=== PATIENT | male | born 1980 | race African-American/Black ===

== ENCOUNTER 2021-03-20 09:39 | Outpatient (REF) | payer OTHER, SELFPAY | END 2021-03-20 09:40 | disposition home or self-care (01) | LOC: HO.LAB 09:39 | PROVIDERS: Visit Provider Internal Medicine | DX: Z20.822 Contact with and (suspected) exposure to COVID-19 (principal) | CPT/HCPCS: C9803; U0003; U0005 ==

== ENCOUNTER 2021-05-08 16:55 | Emergency (ER) | payer OTHER, SELFPAY ==
--- NOTE | ~2021-05-08 | XR_ITS ---
EXAMINATION: 1. RIGHT FOOT. 2. RIGHT ANKLE. CLINICAL INFORMATION: Foot pain. Leg pain. Swelling. COMPARISON: None TECHNIQUE: 1. Right ankle. 3 views 2. Right foot. 3 views. FINDINGS: 1. Right ankle. No fracture. No dislocation. Ankle mortise is congruent. No soft tissue abnormality. 2. Right foot. No fracture. No dislocation. Joint spaces are normal. No soft tissue abnormality. XR/XR foot RT min 3V IMPRESSION: 1. Right ankle. Normal right ankle. 2. Right foot. Normal right foot.
--- NOTE | ~2021-05-08 | XR_ITS ---
EXAMINATION: 1. RIGHT FOOT. 2. RIGHT ANKLE. CLINICAL INFORMATION: Foot pain. Leg pain. Swelling. COMPARISON: None TECHNIQUE: 1. Right ankle. 3 views 2. Right foot. 3 views. FINDINGS: 1. Right ankle. No fracture. No dislocation. Ankle mortise is congruent. No soft tissue abnormality. 2. Right foot. No fracture. No dislocation. Joint spaces are normal. No soft tissue abnormality. XR/XR ankle RT min 3V IMPRESSION: 1. Right ankle. Normal right ankle. 2. Right foot. Normal right foot.
[2021-05-08 18:21] VITALS: BP 147/94; PULSE 65; RESP 18; TEMP 37; O2SAT 98; BMI 24.3
--- NOTE | 2021-05-08 19:25 | ED.EXTPRO ---
HPI - Extremity Problem General Chief complaint: Extremity Problem Stated complaint: Right foot pain/no inj Time Seen by Provider: 05/08/21 18:32 Source: patient Mode of arrival: ambulatory Limitations: no limitations History of Present Illness HPI Narrative: 41 years old male came in for evaluation of right foot/ankle pain. 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 Patient's job require medical clearance before go back to work. Related Data Allergies Allergy/AdvReac Type Severity Reaction Status Date / Time No Known Allergies Allergy Verified 05/08/21 18:21 Review of Systems Review of Systems: All other systems are reviewed and are negative Constitutional: Reports as per HPI and Reports no additional constitutional complaints Eyes: Reports as per HPI and Reports no additional eye complaints Reports system reviewed and no additional complaints, except as documented Cardiovascular: Reports as per HPI and Reports no additional cardiovascular complaints Respiratory: Reports as per HPI and Reports no additional respiratory complaints Gastrointestinal: Reports as per HPI and Reports no additional gastrointestinal complaints Genitourinary: Reports no additional female genitourinary complaints Musculoskeletal: Reports no additional musculoskeletal complaints Skin/Breast: Reports system reviewed and no additional complaints, except as docu Psychiatric: Reports no additional psychiatric complaints Endocrine: Reports no additional endocrine complaints Hematologic/Lymphatic: Reports no additional hematologic/lymphatic complaints Allergic/Immunologic: Reports no additional allergic/immunologic complaints Reports system reviewed and no additional complaints, except as documented and Reports Abnormal speech present [facility], [facility] Social History Social History Advance Directives: No Advance Directives Information Provided: No Physical Exam Vital Signs: Vital Signs: Last Vital Signs Temp 98.6 F 05/08/21 18:21 Pulse 65 05/08/21 18:21 Resp 18 05/08/21 18:21 BP 147/94 H 05/08/21 18:21 Pulse Ox 98 05/08/21 18:21 Body Mass Index 24.3 Vital signs have been reviewed as appeared to be correct. Blood pressure normal. Heart rate normal. Respiration rate normal. Temperature normal. Oxygen saturation normal. Appearance: Alert. Oriented X3. No acute distress. Head: Normal external exam. Normocephalic. Atraumatic. No [place] signs noted. No raccoon eyes noted Eyes: PERRLA. EOMI. Conjunctiva and sclera normal. Eyelids normal. ENT: TM's Normal. Pharynx normal. Uvula midline. Moist mucous membranes. No trismus noted. No drooling noted. No muffled voice noted. Neck: Normal inspection. Neck supple. FROM. No adenopathy. Thyroid Normal. No meningeal signs. No neck mass noted. CVS: Normal heart rate and rhythm. Heart sound normal. No murmurs noted. Pulses normal throughout. Respiratory: No respiratory distress. Painless inspiration. Breath sounds normal. No wheezes/rales/rhonchi noted. Chest nontender. No accessory muscle usage noted or decreased air movement noted. Abdomen: Soft and nontender. Bowel sounds normal in all 4 quadrants. No distention noted. No organomegaly noted. No visible injury noted. Back: No CVA tenderness. Full range of motion noted. Skin: Skin warm and dry. Normal skin color. Normal skin turgor. No rashes/lesions/lacerations noted. Extremities: Right foot/ankle exam: Mild tenderness over right foot, no step-off, no deformity, neurovascular intact. Care Neuro: Oriented X 3. Cranial nerve exam: II-XII are grossly intact No motor deficit. No sensory deficit. Reflexes normal. Course Course Course Narrative: Assessment and plan: year-old male with right foot/ankle sprain at work, physical exam/x-rays shows no acute fracture or dislocation. MDM - Extremity (Nontraumatic) Imaging Data Right foot/right ankle x-ray: Radiologist's impression: Normal right ankle/normal right foot x-rays. Discharge Plan Discharge Clinical Impression: Contusion of foot, right Patient Disposition: Home, Self-Care Instructions: Foot Contusion (ED) Stand Alone Forms: Work/School Release
== END 2021-05-08 20:00 | disposition home or self-care (01) ==
PROVIDERS: Emergency Provider Emergency Medicine
DX: S90.31XA Contusion of right foot, initial encounter (principal); Y93.39 Activity, other involving climbing, rappelling and jumping off; M79.671 Pain in right foot; Y93.H3 Activity, building and construction; Y92.69 Other specified industrial and construction area as the place of occurrence of the external cause; Y99.0 Civilian activity done for income or pay
CPT/HCPCS: 73610; 73630; 99283